=== PATIENT | male | born 2000 | race Two or more races ===

== ENCOUNTER 2022-09-09 14:59 | Emergency (ER) | payer OTHER ==
[2022-09-09 15:24] VITALS: BP 112/67; PULSE 74; RESP 18; TEMP 97.6; BMI 21.2
[2022-09-09] MEDS ORDERED: LIDOCAINE 5% TOPICAL PATCH TP ONE (16:00)
[2022-09-09] MEDS ORDERED: KETOROLAC TROMETHAMINE 30 MG/1 ML VIAL IM ONE (16:00)
[2022-09-09] MEDS ORDERED: LIDOCAINE 5% TOPICAL PATCH ONE (16:04)
[2022-09-09] MEDS ORDERED: KETOROLAC TROMETHAMINE 30 MG/1 ML VIAL ONE (16:04)
[2022-09-09] MEDS ORDERED: LIDOCAINE PATCH REMOVAL MC SCH (22:00)
== END 2022-09-09 16:59 | disposition home or self-care (01) ==
LOC: JERFT 14:59
PROC: 3E0233Z Introduction of Anti-inflammatory into Muscle, Percutaneous Approach (ICD-10-PCS; principal; 2022-09-09)
DX: M54.50 Low back pain, unspecified (principal); W22.8XXA Striking against or struck by other objects, initial encounter
CPT/HCPCS: 72100-TC-FY; 99284-25

== ENCOUNTER 2023-01-24 03:20 | Emergency (ER) | payer OTHER ==
[2023-01-24 03:30] VITALS: BP 120/73; PULSE 65; RESP 18; TEMP 97.9; BMI 23.1
[2023-01-24] MEDS ORDERED: IBUPROFEN 600 MG TABLET (FP) PO ONE ×2 (05:55→06:17)
[2023-01-24] MEDS ORDERED: AMOX TR/POT CLAV 875MG/125MG TABLETS (FP) PO ONE (05:56)
[2023-01-24] MEDS ORDERED: AMOX TR/POT CLAV 875MG/125MG TABLETS (FP) ONE (06:17)
== END 2023-01-24 06:28 | disposition home or self-care (01) ==
LOC: JER 03:20
DX: K08.89 Other specified disorders of teeth and supporting structures (principal); R51.9 Headache, unspecified
CPT/HCPCS: 99283-25